=== PATIENT | female | born 2005 | race Caucasian/White ===

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

== ENCOUNTER 2025-09-08 08:32 | Emergency (ER) | payer BC, SELFPAY ==
--- NOTE | 2025-09-08 08:38 | ED_ITS ---
HPI - Back Pain/Injury General Stated Complaint: chest tightness/back pain/neck pain Time Seen by Provider: 09/08/25 08:34 Related Data Allergies Allergy/AdvReac Type Severity Reaction Status Date / Time No Known Allergies Allergy Unverified 06/24/15 18:32 [facility] Past Medical History Medical History (Updated 07/16/20 @ 00:00 by Martita Edgar) Environmental allergies Asthma Surgical History Surgical History S/P arthroscopic surgery of left knee Family History Family History Father Hyperlipidemia Mother Asthma Social History Social History Smoking status: Never smoker Alcohol intake: never Substance use: never Living arrangements: with family Occupation/Education: student Gender identity (if verbalized by the patient): Female Discharge Plan Discharge Patient Language: [place] Prescriptions: No Action prednisone 20 mg tablet 40 mg PO DAILY Qty: 10 0RF montelukast [Singulair] 10 mg tablet 10 mg PO DAILY Qty: 7 0RF albuterol sulfate [ProAir HFA] 90 mcg/actuation HFA aerosol inhaler 2 puff INHALATION QID PRN (Reason: shortness of breath or wheezing) Qty: 8.5 0RF Follow-up/Referrals: PHYSICIAN,PHYSICAL BIOCHEMIST [Primary Care Provider, Internal Medicine]
--- NOTE | 2025-09-08 08:38 | ED.ASTHMA ---
HPI - Asthma General Chief Complaint: Upper Respiratory Infection Stated Complaint: chest tightness/back pain/neck pain Time Seen by Provider: 09/08/25 08:34 Source: patient Mode of arrival: ambulatory Limitations: no limitations History of Present Illness HPI Narrative: Valeri is a 20-year-old female patient presenting to the clinic today with complaints of chest tightness, chest back pain, and neck pain. She reports she was having an asthma attack for a lot of the day yesterday. Had been using her inhaler with some relief. Has states she had Thanksgiving over her family's house and they have animals that triggers her asthma. She could not really leave due to Thanksgiving. Cough is nonproductive. She denies any fevers. No sore throat. Has a brand new albuterol inhaler. Related Data Allergies Allergy/AdvReac Type Severity Reaction Status Date / Time No Known Allergies Allergy Unverified 06/24/15 18:32 Review of Systems Review of Systems: Pertinent positives per HPI. Patient denies any fever, chills, rash, headache, visual changes, dizziness, cough, shortness of breath, chest pain, palpitations, nausea, vomiting, diarrhea, constipation, abdominal pain, or any urinary issues. [facility] Past Medical History Medical History (Updated 09/08/25 @ 09:26 by Michael Sauer APRN) Environmental allergies Asthma Surgical History Surgical History S/P arthroscopic surgery of left knee Family History Family History Father Hyperlipidemia Mother Asthma Social History Social History Smoking status: Never smoker Alcohol intake: never Substance use: never Living arrangements: with family Occupation/Education: student Gender identity (if verbalized by the patient): Female Comments At the time of my signature, I reviewed and agree with the nursing past medical, surgical, social, and family history. There is no relevant family history pertinent to the patient complaint. Exam Narrative: General: Well-developed, well nourished, in no apparent distress Head: Normocephalic, atraumatic Eyes: Pupils equally round and reactive to light bilaterally, EOM intact, sclera and conjunctive clear, no discharge, lids normal Ears: TMs intact and clear, ear canals clear, no drainage, grossly hearing normal. Nose: Nares patent, no discharge, no inflammation, no sinus tenderness. Mouth: Oral pharynx without lesions or masses, good dentition, MMM. Neck: Supple, trachea midline, no enlargement of anterior or posterior cervical nodes, no thyroid masses or goiter palpable. Cardio: Regular rate and rhythm, s1 and s2 normal, no murmur appreciated. Resp: Lung sounds tight/diminished in the bases, no rhonchi, rales, wheezing or rubs Course Course Emergency Course: Portions of this record may have been created with voice recognition software. Level of Care: Express Care Visit Vital Signs Vital signs: Vital Signs Temperature 36.2 C L 09/08/25 08:41 Pulse Rate 85 09/08/25 08:41 Respiratory Rate 17 09/08/25 08:41 Blood Pressure 118/64 09/08/25 08:41 Pulse Oximetry 98 09/08/25 08:41 Oxygen Delivery Room Air 09/08/25 08:41 Temperature 36.2 C L 09/08/25 08:41 Pulse Rate 79 09/08/25 09:28 Respiratory Rate 18 09/08/25 09:28 Blood Pressure 118/64 09/08/25 08:41 Pulse Oximetry 99 09/08/25 09:28 Oxygen Delivery Room Air 09/08/25 08:41 Vital signs reviewed MDM - Asthma MDM Narrative Medical decision making narrative: At the time of visit patient is resting comfortably on the exam table. Patient appears to be nontoxic. Complaints of chest tightness, chest back pain, and neck pain. She reports she was having an asthma attack for a lot of the day yesterday. Had been using her inhaler with some relief. Has states she had Thanksgiving over her family's house and they have animals that triggers her asthma. She could not really leave due to Thanksgiving. Cough is nonproductive. She denies any fevers. No sore throat. Has a brand new albuterol inhaler. On exam patient has bilateral TMs intact and clear, no nasal drainage, no anterior turbinate inflammation, oral pharynx normal, no cervical lymphadenopathy, heart rates regular rate and rhythm, lung sounds tight and diminished in the bases. Medications: DuoNeb hand-held neb treatment given in the clinic today. Lung sounds have improved and patient feels as though she is not as tight as she was. Plan: I suspect patient has an exacerbation of her asthma. Prescription for prednisone was sent to the pharmacy. Recommend continuation of medications as prescribed. Supportive measures were discussed with the patient and they voiced understanding discharge instructions and agrees to treatment plan. Return precautions reviewed Differential Diagnosis Differential diagnosis: Likely Acute exacerbation, Status asthmaticus, Acute asthmatic bronchitis, PE, Pneumonia, COPD exacerbation, Pulmonary edema systolic, Pulmonary edema dystolic, ARDS, Pneumothorax and Foreign body in trachea Discharge Plan Discharge Clinical Impression: Asthma Qualifiers: Asthma severity: unspecified severity Asthma persistence: unspecified Asthma complication type: unspecified Qualified Code(s): J45.909 - Unspecified asthma, uncomplicated Patient Disposition: Home Condition: Stable Instructions: Antibiotic Form, Asthma (ED) Additional Instructions: Take prescription medications only as prescribed-prednisone Hand-held DuoNeb treatment was given in the clinic today. Increase fluids and stay well hydrated May take Tylenol or motrin as directed on bottle for pain/fever May use Flonase 1 spray in each nare daily May take OTC antihistamines such as Zyrtec or Claritin daily as directed on bottle May apply Vicks vapor rub to chest to open sinuses Sinus rinses for congestion Cepacol spray, cough drops, throat lozenges, warm tea with honey/lemon, gargle salt water to soothe throat BRAT diet for diarrhea Clear liquids x 24 hours then advance as tolerated for nausea/vomiting Go to the ED if you develop a worsening in your condition- high fever not controlled by Tylenol or Motrin, dehydration, weakness, lethargy, shortness of breath, or chest pain. Follow up with your PCP in 3-5 days if symptoms persist. Patient Language: Amharic Prescriptions: New prednisone 20 mg tablet 40 mg PO DAILY 5 Days Qty: 10 0RF No Action prednisone 20 mg tablet 40 mg PO DAILY Qty: 10 0RF montelukast [Singulair] 10 mg tablet 10 mg PO DAILY Qty: 7 0RF albuterol sulfate [ProAir HFA] 90 mcg/actuation HFA aerosol inhaler 2 puff INHALATION QID PRN (Reason: shortness of breath or wheezing) Qty: 8.5 0RF Follow-up/Referrals: PHYSICIAN,ADMINISTRATIVE SUPPORT TECHNICIAN [Primary Care Provider, Internal Medicine] Time of Disposition: 09:26 Quality NIHSS Nursing Documentation ED NIHSS nursing documentation: reviewed/agree
[2025-09-08 08:41] VITALS: BP 118/64; PULSE 85; RESP 17; TEMP 36.2; O2SAT 98
[2025-09-08] MEDS: ALBUTEROL SULFATE NEB 2.5 MG/3 ML INH INHALATION (09:01)
[2025-09-08] MEDS: IPRATROPIUM BR 0.02% INH SOLN 0.5 MG/2.5 ML VIAL INHALATION (09:01)
[2025-09-08 09:28] VITALS: PULSE 79; RESP 18; O2SAT 99
== END 2025-09-08 09:31 | disposition home or self-care (01) ==
PROVIDERS: Emergency Provider Nurse Practitioner Family
DX: J45.909 Unspecified asthma, uncomplicated (principal)
CPT/HCPCS: 94640; 99213; G0463